=== PATIENT | female | born 1940 | race Caucasian/White ===

== ENCOUNTER 2019-02-20 07:15 | Inpatient (IN) | payer OTHER ==
[~2019-02-20] VITALS: Ht 165.1 cm; Wt 90.7 kg
[2019-02-23] MEDS ORDERED: ALTACE2.5 MG PO (10:18)
[2019-02-23] MEDS ORDERED: AMARYL PO (10:18)
[2019-02-23] MEDS ORDERED: ZOCOR PO (10:18)
[2019-02-23] MEDS ORDERED: TRAMADOL HCL50 MG PO (10:19)
[2019-02-23] MEDS ORDERED: NEURONTIN800 MG PO (10:19)
[2019-02-23] MEDS ORDERED: PLAVIX75 MG PO (10:20)
[2019-02-23] MEDS ORDERED: PEPCID20 MG PO (10:20)
[2019-02-27] MEDS ORDERED: GLIMEPIRIDE2 MG PO (08:12)
[2019-02-27] MEDS ORDERED: SIMVASTATIN40 MG PO (08:13)
[2019-02-28] MEDS ORDERED: ANASTROZOLE1 MG PO (11:23)
[2019-03-02] MEDS ORDERED: DUI500 PO (08:26)
[2019-03-02] MEDS ORDERED: PERCOCET 5-3251 EACH PO (08:26)
[2019-03-02] MEDS ORDERED: ELIQUIS2.5 MG PO (08:26)
== END 2019-03-02 16:41 | DRG 470 ==
LOC: SURG 07:15 → O/R 02-27 07:01 → SURG 02-27 07:15
PROVIDERS: ADMIT Orthopaedic Surgery
PROC: 0MNP0ZZ Release Left Knee Bursa and Ligament, Open Approach (ICD-10-PCS; 2019-02-27)
PROC: 0SRD0J9 Replacement of Left Knee Joint with Synthetic Substitute, Cemented, Open Approach (ICD-10-PCS; principal; 2019-02-27 14:15)
PROC: 30233N1 Transfusion of Nonautologous Red Blood Cells into Peripheral Vein, Percutaneous Approach (ICD-10-PCS; 2019-02-28)
DX: M17.12 Unilateral primary osteoarthritis, left knee (principal); D62 Acute posthemorrhagic anemia; M81.0 Age-related osteoporosis without current pathological fracture; I48.0 Paroxysmal atrial fibrillation; E11.40 Type 2 diabetes mellitus with diabetic neuropathy, unspecified; K21.9 Gastro-esophageal reflux disease without esophagitis; I10 Essential (primary) hypertension; Z86.718 Personal history of other venous thrombosis and embolism; Z85.3 Personal history of malignant neoplasm of breast

== ENCOUNTER 2019-03-05 14:15 | Emergency (ER) | payer OTHER ==
[~2019-03-05] VITALS: Ht 165.1 cm; Wt 87.5 kg
[~2019-03-05 14:15] MED LIST: ALTACE2.5 MG PO; AMARYL PO; ANASTROZOLE1 MG PO; DUI500 PO; ELIQUIS2.5 MG PO; GLIMEPIRIDE2 MG PO; NEURONTIN800 MG PO; PEPCID20 MG PO; PERCOCET 5-3251 EACH PO; PLAVIX75 MG PO; SIMVASTATIN40 MG PO; TRAMADOL HCL50 MG PO; ZOCOR PO
== END 2019-03-06 14:11 | disposition home or self-care (01) ==
LOC: ER 14:15
DX: I80.232 Phlebitis and thrombophlebitis of left tibial vein (principal); I87.2 Venous insufficiency (chronic) (peripheral); I70.293 Other atherosclerosis of native arteries of extremities, bilateral legs; M79.605 Pain in left leg; D62 Acute posthemorrhagic anemia; R06.02 Shortness of breath; R53.83 Other fatigue; Z96.652 Presence of left artificial knee joint

== ENCOUNTER 2019-03-06 00:19 | Emergency (ER) | payer OTHER ==
[~2019-03-06] VITALS: Ht 165.1 cm; Wt 87.5 kg
== END 2019-03-06 14:49 | disposition home or self-care (01) ==
LOC: ER 00:19
DX: I80.232 Phlebitis and thrombophlebitis of left tibial vein (principal); I87.2 Venous insufficiency (chronic) (peripheral); D62 Acute posthemorrhagic anemia; D50.0 Iron deficiency anemia secondary to blood loss (chronic); M79.605 Pain in left leg; R06.02 Shortness of breath; R53.83 Other fatigue; Z96.652 Presence of left artificial knee joint

== ENCOUNTER 2019-03-09 14:46 | Emergency (ER) | payer OTHER ==
[~2019-03-09] VITALS: Ht 165.1 cm; Wt 87.5 kg
[2019-03-09] MEDS ORDERED: AMARYL PO (15:48)
[2019-03-09] MEDS ORDERED: ELIQUIS5 MG PO ×2 (15:50→15:51)
== END 2019-03-09 22:10 | disposition home or self-care (01) ==
LOC: ER 14:46
DX: I82.492 Acute embolism and thrombosis of other specified deep vein of left lower extremity (principal); I48.2 Chronic atrial fibrillation

== ENCOUNTER 2019-04-10 15:19 | Emergency (ER) | payer OTHER ==
[~2019-04-10] VITALS: Ht 165.1 cm; Wt 83.0 kg
[~2019-04-10 15:19] MED LIST changes: +ELIQUIS5 MG PO
== END 2019-04-11 11:04 | disposition home or self-care (01) ==
LOC: ER 15:19
DX: I87.2 Venous insufficiency (chronic) (peripheral) (principal); R60.0 Localized edema; M79.605 Pain in left leg; Z96.652 Presence of left artificial knee joint

== ENCOUNTER 2020-08-31 15:00 | Inpatient (IN) | payer OTHER ==
[~2020-08-31] VITALS: Ht 170.2 cm; Wt 74.8 kg
[2020-09-04] MEDS ORDERED: LEVOFLOXACIN750 MG PO (09:40)
[2020-09-04] MEDS ORDERED: ULTRACET PO (09:40)
[2020-09-04] MEDS ORDERED: ELIQUIS2.5 MG PO (09:40)
== END 2020-09-04 10:26 | disposition home or self-care (01) | DRG 560 ==
LOC: ER 15:00 → SURH 19:44
PROVIDERS: ADMIT Orthopaedic Surgery; ATTEND Orthopaedic Surgery
PROC: B54CZZZ Ultrasonography of Left Lower Extremity Veins (ICD-10-PCS; principal; 2020-09-01)
DX: T84.54XA Infection and inflammatory reaction due to internal left knee prosthesis, initial encounter (principal); I82.409 Acute embolism and thrombosis of unspecified deep veins of unspecified lower extremity; E11.40 Type 2 diabetes mellitus with diabetic neuropathy, unspecified; I10 Essential (primary) hypertension; Z98.890 Other specified postprocedural states